=== PATIENT | female | born 1945 | race Caucasian/White ===

== ENCOUNTER → 2018-03-28 | Outpatient (CLI) | payer OTHER ==
[~2018-03-28] MED LIST: REGADENOSON 0.4 MG/5 ML DISP.SYRIN. IV ONE
--- NOTE | 2018-03-28 16:08 | PCVCIMAG ---
APPROVED REPORT Imaging Protocol: Rest Tc-99m/Stress Tc-99m 1 day Study performed: 03/28/2018 08:50:53 Indication: Chest pain, Dyspnea Patient Location: Out-Patient Stress Nurse: Su Morales RN [place] Tech:Katie Ibrahimgabino [facility] Ht: 5 ft 4 in Wt: 100 lbs BSA: 1.46 m2 HR: 84 bpm BP: 163/82 mmHg BMI: 17.1 Rhythm: SR Medical History Medical History: Current Smoker, PVD, Age, ETOH Medications: Losartan, Spiriva, Symbicort, Tiazac, Cytomel Allergies: Augmentin, Klonipin Pretest Chest Pain Characteristics: Exertional Chest pain Exercise History: Sedentary Physical Disabilities: COPD Resting Data Rest SPECT myocardial perfusion imaging was performed in supine position 45 minutes following the intravenous injection of 10.4 mCi of Tc-99m Sestamibi. Time of rest injection: 814 Date: 03/28/2018 Administration Route: IV Administration Site: Right AC Pharmacologic Stress Pharmacologic stress test was performed by injecting Regadenoson 0.4 mg IV push over 10-15 seconds immediately followed by the intravenous injection of 34.9 mCi of Tc-99m Sestamibi. Time of stress injection: 09 Administration Route: IV Administration Site: Right AC Gated Stress SPECT was performed 45 minutes after stress injection. The images were gated to evaluate regional wall motion and calculate left ventricular ejection fraction. Stress Test Details Stress Test: Pharmacologic stress testing performed using 0.4 mg of regadenoson per 5 mL given IV over 10 seconds. Reason for pharmacologic stress test: physical limitation, lung status. HRMax Heart Rate (APMHR): 148 bpm Resting HR: 84 bpmTarget HR (85% APMHR): 125 bpm Max HR Achieved: 104 bpm % of APMHR: 70 Recovery HR: 91 bpm BP Resting BP: 163/82 mmHg Recovery BP: 133/80 mmHg ECG Resting ECG: Sinus Rhythm Stress ECG: Sinus Tachycardia Recovery ECG: Sinus Rhythm Clinical Reason for Termination: Completed protocol Stress Symptoms: Dyspnea Exercise duration: 0 min 55 sec Symptoms resolved with caffeine. Stress ECG Conclusion ECG: Non-ischemic Study Quality Study: Good Study Data Post stress, the left ventricular ejection was 75%.. SSS: 0 SRS: 8 SDS: 0 TID = 0.97. Perfusion No evidence of stress induced ischemia or prior myocardial infarction. Wall Motion Normal left ventricular size and function with no regional wall motion abnormalities. Nuclear Conclusion No evidence of stress induced ischemia or prior myocardial infarction. Normal left ventricular size and function with no regional wall motion abnormalities. Post stress, the left ventricular ejection was 75%. No prior study available for comparison. Interpreted by: Jerry Lugo MD Electronically Approved: 03/28/2018 14:31:31 <Conclusion> ECG: Non-ischemic
== END | disposition home or self-care (01) ==
LOC: PCVCIMAG 12:15
PROVIDERS: ATTEND Internal Medicine Cardiovascular Disease
DX: R07.9 Chest pain, unspecified (principal); F17.200 Nicotine dependence, unspecified, uncomplicated
CPT/HCPCS: 78452; 93017; A9500; J2785